=== PATIENT | male | born 1945 | race Caucasian/White ===

== ENCOUNTER 2018-06-15 20:39 | Emergency (ER) | payer MEDICARE, BC ==
--- NOTE | 2018-06-15 23:24 | RAD ---
RIGHT ANKLE THREE VIEWS: 06/15/18 Some soft tissue swelling is seen but no fracture was appreciated. Arterial calcifications are presen t. IMPRESSION: Mild soft tissue swelling. POS: HOME
== END 2018-06-15 21:16 | disposition home or self-care (01) ==
LOC: BURERS 20:39
DX: S90.01XA Contusion of right ankle, initial encounter (principal); E03.9 Hypothyroidism, unspecified; E78.5 Hyperlipidemia, unspecified; I10 Essential (primary) hypertension; I48.91 Unspecified atrial fibrillation; E11.9 Type 2 diabetes mellitus without complications; Z86.73 Personal history of transient ischemic attack (TIA), and cerebral infarction without residual deficits; Z87.891 Personal history of nicotine dependence; Z79.899 Other long term (current) drug therapy; Z79.84 Long term (current) use of oral hypoglycemic drugs; Z79.82 Long term (current) use of aspirin; W22.8XXA Striking against or struck by other objects, initial encounter